=== PATIENT | male | born 1950 | race Caucasian/White ===

== ENCOUNTER → 2016-05-06 | Outpatient (CLI) | payer OTHER, BC ==
[2016-05-06 15:00] LABS: ASPARTATE AMINO TRANSFERASE 66 IU/L (21-57); BILIRUBIN,TOTAL 0.7 mg/dL (0.3-1.2); BLOOD UREA NITROGEN 20 mg/dL (7-22); BUN/CREATININE RATIO 18.18 (6-20); CALCIUM 9.3 mg/dL (8.7-10.7); CHLORIDE 99 meq/L (98-112); CREATININE 1.1 mg/dL (0.70-1.50); EST GLOMERULAR FILTRATION > 60 (>60 ml/min/1.73m(2)); GLUCOSE 110 mg/dL (78-110); POTASSIUM 4.3 meq/L (3.8-5.2); SODIUM 139 meq/L (135-145); TOTAL PROTEIN 6.9 g/dL (6.1-8.0)
== END ==
LOC: LAB 08:16
PROVIDERS: ATTEND Physician Assistant Medical
DX: I50.32 Chronic diastolic (congestive) heart failure (principal)
CPT/HCPCS: 80053

== ENCOUNTER → 2016-08-07 | Outpatient (CLI) | payer OTHER, BC ==
[2016-08-07 14:58] LABS: CALCIUM 9.4 mg/dL (8.7-10.7); SERUM ALBUMIN 4.2 g/dL (3.5-4.8)
[2016-08-07 14:59] LABS: CHOL/HDL RATIO 3.07 RATIO (0-4.0); LDL CHOLESTEROL,CALCULATED 87.4 mg/dL
== END ==
LOC: LAB 10:14
PROVIDERS: ATTEND Physician Assistant Medical
DX: E11.8 Type 2 diabetes mellitus with unspecified complications (principal)
CPT/HCPCS: 80053; 80061; 83036